=== PATIENT | male | born 1985 | race African-American/Black ===

== ENCOUNTER 2023-04-01 14:34 | Emergency (ER) | payer SELFPAY ==
[~2023-04-01] VITALS: Ht 170.2 cm; Wt 68.0 kg
[2023-04-01 15:01] VITALS: BP 116/78; PULSE 87; RESP 16; TEMP 98; O2SAT 99
== END 2023-04-01 16:49 | disposition left against medical advice (07) ==
LOC: ER 14:34
DX: R42 Dizziness and giddiness (principal)
CPT/HCPCS: 99283